=== PATIENT | male | born 1995 | race Two or more races ===

== ENCOUNTER 2021-10-28 08:28 | Day surgery (SDC) | payer OTHER ==
[~2021-10-28] VITALS: Ht 167.6 cm; Wt 96.3 kg
[~2021-10-28 08:28] MED LIST: ACET32TAB PO; EPIP0.3I2 IM; LIDOCAINE 1% MDV 20ML VIAL SQ PRN; LORA-243 PO; LR 1,000 ML IV ONE
[2021-10-28] MEDS ORDERED: ONDANSETRON 4MG/2ML VIAL As Ordered ONE (09:18)
[2021-10-28] MEDS ORDERED: ROCURONIUM BROMIDE 50 MG/5 ML VIAL As Ordered ONE (09:18)
[2021-10-28] MEDS ORDERED: dexameTHASONE 4 MG/ML 1ML VIAL (J1100 PER 1MG) As Ordered ONE (09:18)
[2021-10-28] MEDS ORDERED: propofoL 200 MG/20 ML VIAL As Ordered ONE ×2 (09:18→12:08)
[2021-10-28] MEDS ORDERED: MIDAZOLAM INJ 2MG/2ML VIAL (J2250 PER 1MG) As Ordered ONE (09:19)
[2021-10-28] MEDS ORDERED: fentaNYL 100 MCG/2 ML INJECTION As Ordered ONE (09:19)
[2021-10-28] MEDS ORDERED: BUPIVACAINE/EPIN 0.5% 30 ML VIAL As Ordered ONE (10:00)
[2021-10-28] MEDS ORDERED: OXYMETAZOLINE 0.05% NASAL SPRAY (AFRIN) As Ordered ONE (10:00)
[2021-10-28] MEDS ORDERED: HYDROmorphone HCL 2MG/ML 1ML VIAL As Ordered ONE (10:26)
[2021-10-28] MEDS ORDERED: ACETAMINOPHEN 1000MG 100ML IV BTL (OFIRMEV) (J0131 PER 10MG) As Ordered ONE (10:26)
[2021-10-28] MEDS ORDERED: SUGAMMADEX SODIUM 500 MG/5 ML VIAL (BRIDION) As Ordered ONE (11:07)
[2021-10-28] MEDS ORDERED: PERCOCET 5MG/325MG TAB PO PRN (11:45)
[2021-10-28] MEDS ORDERED: LR 1,000 ML IV SCH ×2 (11:45)
[2021-10-28] MEDS ORDERED: fentaNYL 100 MCG/2 ML INJECTION IV PRN (11:45)
[2021-10-28] MEDS ORDERED: HYDROcodone/APAP LIQUID 7.5-325MG 15ML UDC (LORTAB ELIXIR) PO PRN (11:45)
[2021-10-28] MEDS ORDERED: ONDANSETRON 4MG/2ML VIAL IV PRN ×2 (11:45)
[2021-10-28 13:51] VITALS: BP 126/67
== END 2021-10-28 14:00 | disposition home or self-care (01) ==
LOC: M SDC 08:28
PROVIDERS: ATTEND Otolaryngology
DX: J35.01 Chronic tonsillitis (principal); G47.33 Obstructive sleep apnea (adult) (pediatric); F17.290 Nicotine dependence, other tobacco product, uncomplicated; R21 Rash and other nonspecific skin eruption; Z79.899 Other long term (current) drug therapy; Z88.0 Allergy status to penicillin; Z91.018 Allergy to other foods; Z91.013 Allergy to seafood
CPT/HCPCS: 42826; 88302; J0131; J1100; J1170; J2250; J2405; J3010

== ENCOUNTER 2021-11-04 15:57 | Emergency (ER) | payer OTHER ==
[~2021-11-04] VITALS: Ht 167.6 cm; Wt 90.9 kg
[~2021-11-04 15:57] MED LIST changes: -LIDOCAINE 1% MDV 20ML VIAL SQ PRN; -LR 1,000 ML IV ONE
[2021-11-04 15:58] VITALS: BP 126/67
[2021-11-04] MEDS ORDERED: [UNRECOGNIZED DRUG - REMARK] (16:10)
[2021-11-04] MEDS ORDERED: HYDR1SOL (16:10)
[2021-11-04] MEDS ORDERED: LIDOCAINE VISCOUS 2% SOLN 15ML UDC SS ONE (20:20)
[2021-11-04] MEDS ORDERED: AZITHROMYCIN 200MG/5ML *ED ONLY* ORAL SYRINGE PO ONE (20:20)
[2021-11-04] MEDS ORDERED: HYDR1SOL PO (20:27)
[2021-11-04] MEDS ORDERED: AZIT100S12 PO (20:27)
[2021-11-04] MEDS ORDERED: LIDO2SOL9 PO (20:27)
== END 2021-11-04 20:59 | disposition home or self-care (01) ==
LOC: M ED 15:57
DX: T81.40XA Infection following a procedure, unspecified, initial encounter (principal); H65.03 Acute serous otitis media, bilateral; Z88.1 Allergy status to other antibiotic agents; Z91.013 Allergy to seafood; Z91.018 Allergy to other foods; Z79.899 Other long term (current) drug therapy

== ENCOUNTER 2025-01-16 13:06 | Emergency (ER) | payer OTHER ==
[~2025-01-16] VITALS: Ht 167.6 cm; Wt 92.6 kg
[~2025-01-16 13:06] MED LIST changes: +AZIT100S12 PO; +HYDR1SOL; +HYDR1SOL PO; +LIDO100S29 PO; +[UNRECOGNIZED DRUG - REMARK]
[2025-01-16] MEDS ORDERED: RAME8TAB2 (13:18)
[2025-01-16] MEDS ORDERED: TOPI-21 (13:18)
[2025-01-16] MEDS ORDERED: TAMS1CAP17 (13:18)
[2025-01-16] MEDS ORDERED: MECL25CH45 (13:18)
[2025-01-16] MEDS ORDERED: IBUP80TA (13:18)
[2025-01-16] MEDS ORDERED: EPIN0.3I11 (13:18)
[2025-01-16] MEDS ORDERED: RIZA10TA58 (13:18)
[2025-01-16] MEDS ORDERED: LORA-930 (13:18)
[2025-01-16] MEDS ORDERED: ACET1TAB55 (13:18)
[2025-01-16] MEDS ORDERED: FLUTISP (13:18)
[2025-01-16] MEDS ORDERED: BUPR150T12 (13:18)
[2025-01-16 15:21] LABS: KETONE, URINE AUTO RFX NEGATIVE (NEGATIVE); LEUKOCYTE ESTERASE UR AUTO RFX NEGATIVE (NEGATIVE); NITRITE, URINE AUTO RFX NEGATIVE (NEGATIVE); RBC, URINE AUTO RFX 0 /HPF (0-3); SQUAM EPITHELIAL CELL UR AURFX 0 /HPF (0-6); WBC, URINE AUTO RFX 1 /HPF (0-3)
[2025-01-16 16:51] LABS: Trichomonas vaginalis (AMP) NOT DETECTED (NEGATIVE)
[2025-01-16 17:07] VITALS: BP 119/76; TEMP 97.1; O2SAT 100
[2025-01-16 17:15] LABS: GC DNA AMPLIFICATION NEGATIVE (NEGATIVE)
== END 2025-01-16 17:27 | disposition home or self-care (01) ==
LOC: M ED 13:06
DX: I86.1 Scrotal varices (principal); N43.3 Hydrocele, unspecified; Z88.1 Allergy status to other antibiotic agents; Z91.013 Allergy to seafood; Z91.018 Allergy to other foods; Z79.1 Long term (current) use of non-steroidal anti-inflammatories (NSAID); Z79.899 Other long term (current) drug therapy